=== PATIENT | female | born 1990 | race Caucasian/White ===

== ENCOUNTER 2017-09-28 10:26 | Emergency (ER) | payer OTHER ==
[~2017-09-28] VITALS: Ht 167.6 cm; Wt 136.1 kg
--- NOTE | ~2017-09-28 | EKG ---
[address] [address] ELECTROCARDIOGRAM REPORT Name: LINODREWJACQUELINE Weinstein Room #: DEP Araceli#: [id number] Admission: 09/28/17 Attend Phys: Discharge: 09/28/17 Date of : 88 Report #: [id number] THIS REPORT FOR: //name// [facility] ED Test Date: 2017-09-28 Test Time: 11:11:36 Pat Name: JACQUELINE JOHNSON Department: Room: Gender: F Agency Service Coordinator: Timmy CRUZ : 1990 Requested By: Ernst Conley Order Number: [id number] MD: Bakari Soto Measurements Intervals [place] Rate: 68 P: 11 KS: 144 QRS: 83 QRSD: 103 T: 15 QT: 416 QTc: 443 Interpretive Statements Sinus rhythm No previous ECG available for comparison Electronically Signed On 09-28-2017 14:03:06 [employer] by Bakari Soto [email or web address] <ELECTRONICALLY SIGNED> By: Bakari Soto MD 09/28/17 1403 [id number] Rolanda Soto MD /ZAC
== END 2017-09-28 12:57 | disposition home or self-care (01) ==
LOC: ER 10:26
DX: K80.20 Calculus of gallbladder without cholecystitis without obstruction (principal); F90.9 Attention-deficit hyperactivity disorder, unspecified type; F32.9 Major depressive disorder, single episode, unspecified; F41.9 Anxiety disorder, unspecified; Z88.6 Allergy status to analgesic agent

== ENCOUNTER → 2018-09-24 | Outpatient (CLI) | payer OTHER | LOC: RAD 08:27 | DX: R07.81 Pleurodynia (principal); R07.89 Other chest pain ==

== ENCOUNTER 2019-12-04 10:20 | Emergency (ER) | payer OTHER ==
[~2019-12-04] VITALS: Ht 167.6 cm; Wt 145.2 kg
[2019-12-04] MEDS ORDERED: TESSALON PERLE100 MG PO (11:17)
[2019-12-04] MEDS ORDERED: PROAIR HFA8.5 GM INH (11:17)
[2019-12-04 11:53] VITALS: BP 141/91
== END 2019-12-04 11:53 | disposition home or self-care (01) ==
LOC: ER 10:20
DX: J06.9 Acute upper respiratory infection, unspecified (principal); F32.9 Major depressive disorder, single episode, unspecified; F41.9 Anxiety disorder, unspecified; F90.9 Attention-deficit hyperactivity disorder, unspecified type; F17.210 Nicotine dependence, cigarettes, uncomplicated; Z88.8 Allergy status to other drugs, medicaments and biological substances

== ENCOUNTER → 2020-03-16 | Outpatient (CLI) | payer OTHER ==
[~2020-03-16] MED LIST: PROAIR HFA8.5 GM INH; TESSALON PERLE100 MG PO
== END ==
LOC: LAB 08:23
PROVIDERS: ATTEND Nurse Practitioner
DX: R50.9 Fever, unspecified (principal); Z20.828 Contact with and (suspected) exposure to other viral communicable diseases